=== PATIENT | male | born 1980 | race Caucasian/White ===

== ENCOUNTER 2019-04-24 13:21 | Emergency (ER) | payer SELFPAY ==
[~2019-04-24] VITALS: Ht 170.2 cm; Wt 61.4 kg
[~2019-04-24 13:21] MED LIST: HYDR-4011 PO; IBUP-1542 PO
[2019-04-24 13:29] VITALS: BP 109/69; PULSE 72; RESP 18; Ht 170.2 cm; Wt 61.4 kg
--- NOTE | 2019-04-24 13:45 | ERD ---
ER Documentation Chief Complaint Chief Complaint left knee pain & swelling x3 days, per pt possible gout HPI Patient is a 38-year-old male, past medical history of gout, presents the ER for concerns of left knee pain and swelling for the last 3 days. Patient denies any falls or trauma. Patient denies fevers or chills. Patient does admit to eating red meat and salty foods recently. Patient states he has had a gout in his left knee previously and symptoms do feel similar to previous of episodes. ROS All systems reviewed and are negative except as per history of present illness. Medications Home Meds Active Scripts Hydrocodone/Acetaminophen (Scio 5-325 Tablet) 1 Each Tablet, 1 TAB PO Q6H PRN for PAIN, #7 TAB Prov:VITOR HENDERSON PA-C 04/24/19 Ibuprofen* (Motrin*) 600 Mg Tab, 600 MG PO Q6, #30 TAB Prov:VITOR HENDERSON PA-C 04/24/19 Allergies Allergies: Coded Allergies: No Known Allergy (Unverified , 04/24/19) FmHx Family History: No diabetes Physical Exam Vitals Vital Signs Date Temp Pulse Resp B/P (MAP) Pulse Ox O2 O2 Flow FiO2 Time Delivery Rate 04/24/19 97.6 72 18 109/69 97 13:29 (82) Physical Exam GENERAL: Well-developed, well-nourished male. Appears in no acute distress. HEAD: Normocephalic, atraumatic. EYES: Pupils are equally reactive bilaterally. EOMs grossly intact. No conjunctival erythema. NECK: Supple. No meningismus. Normal range of motion of the neck. LUNG: Clear to auscultation bilaterally. No rhonchi, wheezing, rales or coarse breath sounds. HEART: Regular rate and rhythm. No murmurs, rubs or gallops. EXTREMITIES: Equal pulses bilaterally. No peripheral clubbing, cyanosis or edema. No unilateral leg swelling. NEUROLOGIC: Alert and oriented. Moving all four extremities without any difficulty. Normal speech. Steady gait. SKIN: Normal color. Warm and dry. No rashes or lesions. LLE: No deformity, erythema, ecchymosis. Mild swelling noted at the knee joint. No warmth. Decreased range of motion of the knee secondary to pain and swelling. Sensation intact to light touch. Neurovascularly intact. 2+ DP and DT pulses. Procedures/MDM MEDICAL DECISION MAKING: This is a 38-year-old male, past medical history of gout, who presents to the ER for concerns of left knee pain x3 days. Vital signs were reviewed. Patient was afebrile. Patient has a history of gout and states that symptoms are similar to past episodes. Patient denies any falls or trauma. Given the patient denied any falls or trauma, do not feel that x-ray imaging is indicated at this time. Patient does admit to eating red meats as well as salty foods recently. Patient likely has of acute gouty attack. Patient will be given ibuprofen and Scio for breakthrough pain. Patient advised on dietary changes. Low suspicion for femur fracture, patella fracture, tibial plateau fracture, septic joint, popliteal cyst, prepatellar bursitis, patellofemoral syndrome, osteomyelitis, DVT or compartment syndrome. At this time, unable to rule out any meniscus and knee ligament injuries. PRESCRIPTIONS: Ibuprofen, Scio The patient has been prescribed Scio during this encounter. The patient has been warned about the use of narcotics. The patient should not drive or operate heavy machinery while taking this medication. The patient was also warned about the addictive properties of narcotic medications. Narcan prescription was NOT provided given the following criteria: 1. Less 10 tablets of Scio 5 mg were prescribed. 2. Concomitant opiate and benzodiazepine prescriptions were not provided. 3. There was no obvious evidence of prior history of opiate abuse or abuse. DISCHARGE: At this time, patient is stable for discharge and outpatient management. RICE therapy and ROM exercises were advised to avoid stiffness. I have instructed the patient to follow-up with his/her primary care physician in 1-2 days. I have discussed with the patient the possibility of needing to see an cash applications specialist for further workup and imaging if the pain persists. I have instructed the patient to promptly return to the ER for any new or worsening symptoms including increased pain, swelling, redness, warmth or fever. The patient and/or family expressed understanding of and agreement with this plan. All questions were answered. Home care instructions were provided. Disclaimer: Inadvertent spelling and grammatical errors are likely due to EHR/dictation software use and do not reflect on the overall quality of patient care. Also, please note that the electronic time recorded on this note does not necessarily reflect the actual time of the patient encounter. Departure Diagnosis: Primary Impression: Gout Gout site: unspecified site Gout etiology: unspecified cause Chronicity: acute Qualified Codes: M10.9 - Gout, unspecified Additional Impression: Knee pain Chronicity: acute Laterality: left Qualified Codes: M25.562 - Pain in left knee Condition: Fair Patient Instructions: Treating Gout Attacks Referrals: [facility] YOU HAVE RECEIVED A MEDICAL SCREENING EXAM AND THE RESULTS INDICATE THAT YOU DO NOT HAVE A CONDITION THAT REQUIRES URGENT TREATMENT IN THE EMERGENCY DEPARTMENT. FURTHER EVALUATION AND TREATMENT OF YOUR CONDITION CAN WAIT UNTIL YOU ARE SEEN IN YOUR DOCTORS OFFICE WITHIN THE NEXT 1-2 DAYS. IT IS YOUR RESPONSIBILITY TO MAKE AN APPOINTMENT FOR FOLOW-UP CARE. IF YOU HAVE A PRIMARY DOCTOR --you should call your primary doctor and schedule an appointment IF YOU DO NOT HAVE A PRIMARY DOCTOR YOU CAN CALL OUR PHYSICIAN REFERRAL HOTLINE AT IF YOU CAN NOT AFFORD TO SEE A PHYSICIAN YOU CAN CHOSE FROM THE FOLLOWING [facility] [address] [facility] [address] [facility] [address] [facility] [address] [facility] [address] [facility]. [facility]. [address] [facility]. [facility] YOU HAVE RECEIVED A MEDICAL SCREENING EXAM AND THE RESULTS INDICATE THAT YOU DO NOT HAVE A CONDITION THAT REQUIRES URGENT TREATMENT IN THE EMERGENCY DEPARTMENT. FURTHER EVALUATION AND TREATMENT OF YOUR CONDITION CAN WAIT UNTIL YOU ARE SEEN IN YOUR DOCTORS OFFICE WITHIN THE NEXT 1-2 DAYS. IT IS YOUR RESPONSIBILITY TO MAKE AN APPOINTMENT FOR FOLOW-UP CARE. IF YOU HAVE A PRIMARY DOCTOR --you should call your primary doctor and schedule and appointment IF YOU DO NOT HAVE A PRIMARY DOCTOR YOU CAN CALL OUR PHYSICIAN REFERRAL HOTLINE AT . IF YOU CAN NOT AFFORD TO SEE A PHYSICIAN YOU CAN CHOSE FROM THE FOLLOWING [facility] INSTITUTIONS[facility] [address] [place] [address] [facility] [address] [place] [address] [facility] + [facility] [address] [place] [address] Additional Instructions: Llame al doctor MAANA y valentino leona LETI PARA DENTRO DE 1-2 ZELAYA.Dgale a la secretaria que nosotros le instruimos hacer esta leti.Avise o llame si crisostomo condicin se empeora antes de la leti. Regresa aqui si peor o no mejor. VITOR HENDERSON PA-C Apr 24, 2019 13:45
== END 2019-04-24 13:35 | disposition home or self-care (01) ==
LOC: E/R 13:21
DX: M10.9 Gout, unspecified (principal)
CPT/HCPCS: 99283